=== PATIENT | female | born 1980 | race Caucasian/White ===

== ENCOUNTER 2020-12-21 11:41 | Outpatient (CLI) | payer MEDICAID, SELFPAY ==
--- NOTE | 2020-12-21 11:46 | XR_ITS ---
WS: [id number] RIBS LEFT TECHNIQUE: 3 views left ribs CLINICAL INFORMATION: RIB PAIN, LEFT SIDED COMPARISON: None. FINDINGS: Left lung is well aerated. Left ribs are normal in appearance. No visualized left rib fractures. No s ubcutaneous emphysema. XR/XR ribs LT 2V* [id number] IMPRESSION: No visualized left rib fractures.
== END 2020-12-21 11:42 | disposition home or self-care (01) ==
PROVIDERS: Visit Provider Pediatrics
DX: R07.81 Pleurodynia (principal)
CPT/HCPCS: 71100

== ENCOUNTER 2022-05-07 07:15 | Outpatient (CLI) | payer MEDICAID, SELFPAY ==
--- NOTE | 2022-05-07 08:30 | CT_ITS ---
WS: [id number] CT SINUSES TECHNIQUE: Noncontrast CT of the paranasal sinuses with coronal and sagittal reformatted images. CLINICAL INFORMATION: Chronic Sinusitis COMPARISON: None. DLP: 345.[address] scans at [facility] use at least one of these dose optimization techniques: automated e xposure control; mA and/or kV adjustment per patient size (includes targeted exams where dose is matc hed to clinical indication); or iterative reconstruction. FINDINGS: Mild LEFT to RIGHT nasal deviation measuring 3 to 4 mm. Retention cyst or polyp in the LEFT sphenoid sinus measuring 1.8 x 1.4 CM.. Paranasal sinuses are otherwise well aerated. Frontal sinuses, maxilla ry sinuses, and RIGHT sphenoid sinus locule are well aerated. Ethmoid air cells well aerated. Mastoid air cells well aerated. Normal posterior nasopharynx. Normal parapharyngeal fat. Ostiomeatal units are patent. Mild mucosal thickening in the RIGHT frontal ethmoidal recess. Trace mu cosal thickening ethmoid air cells. Normal pterygoid plates. CT/CT sinus wo con* [id number] IMPRESSION: 1. Mild LEFT to RIGHT nasal septal deviation measuring 3 to 4 mm. 2. Prominent retention cyst or polyp in the LEFT sphenoid sinus measuring 1.8 x 1.4 CM. 3. Paranasal sinuses otherwise well aerated with mild mucosal thickening in th e RIGHT frontoethmoidal recess and ethmoid air cells. 4. Mastoid air cells are well aerated. 5. Normal posterior nasopharynx.
== END 2022-05-07 07:16 | disposition home or self-care (01) ==
LOC: RAD 07:15
PROVIDERS: PCP Family Medicine; Visit Provider Otolaryngology
DX: J32.9 Chronic sinusitis, unspecified (principal); J34.2 Deviated nasal septum
CPT/HCPCS: 70486

== ENCOUNTER 2022-05-07 07:15 | Outpatient (CLI) | payer MEDICAID, SELFPAY ==
--- NOTE | 2022-05-07 07:22 | USCV_ITS ---
Marleni Shah Age: 41 Gender: F : 1980 Exam Date: 05/07/2022 07:25 Ordering Phys: Devendra Mandel M.D Technologist: CARROL Exam Location: [facility] [place] Indication: MURMUR BP: 150 / 70 HR: 80 Rhythm: Sinus Technical Quality: Adequate MEASUREMENTS (Male / Female) Normal Values 2D ECHO LVOT Diameter 2.0 cm LV Ejection Fraction MOD 2C 58.1 % LV Ejection Fraction 2C AL 62.6 % LA Diameter 2.8 cm LA Width 3.1 cm LA Height 3.5 cm RA Width 2.6 cm RA Height 3.2 cm Aorta at Sinotubular Diameter 2.2 cm IVC Diameter 1.8 cm M-MODE Aortic Annulus Diameter 2.6 cm LA Ao Ratio MM 1.1 MV E Point Septal Separation 0.9 cm DOPPLER AV Peak Velocity 129.0 cm/s LVOT Peak Velocity 91.0 cm/s AV Area Cont Eq vti 2.6 cm squared AV Area Cont Eq pk 2.2 cm squared MV Peak Velocity 110.0 cm/s MV Area PHT 4.1 cm squared Mitral E to A Ratio 0.9 MV E' Velocity 50.5 cm/s Mitral E to MV E' Ratio 6.7 Mitral E to LV E' Lateral Ratio 7.5 Mitral E to LV E' Septal Ratio 6.2 TR Peak Velocity 228.5 cm/s TR Peak Gradient 20.9 mmHg TR Mean Velocity 190.4 cm/s TR Mean Gradient 15.3 mmHg TR Velocity Time Integral 73.0 cm TV Peak E Velocity 68.0 cm/s Right Atrial Pressure 3.0 mmHg Pulmonary Artery Systolic Pressu 23.9 mmHg PV Peak Velocity 80.0 cm/s RV Acceleration Time 0.2 s RV Ejection Time 0.4 s RV AcT/ET 0.5 FINDINGS Left Ventricle Normal left ventricular size, systolic function and wall thickness, with no regional wall motion abnormalities. Left ventricular ejection fraction is estimated at 60 %. Grade I/IV diastolic dysfunction (abnormal relaxation filling pattern), normal to mildly elevated filling pressures. Right Ventricle The right ventricle is normal in size and function. Right Atrium The right atrium is normal in size. Left Atrium The left atrium is normal in size. Mitral Valve Mildly thickened mitral valve. No mitral valve stenosis. Mild mitral valve regurgitation. Aortic Valve Structurally normal aortic valve without significant sclerosis or stenosis. There is no aortic regurgitation. Tricuspid Valve Structurally normal tricuspid valve without significant stenosis and trace regurgitation. Pulmonary artery systolic pressure is normal. Pulmonic Valve Structurally normal pulmonic valve without significant stenosis. There is no pulmonic regurgitation. Pericardium Normal pericardium without effusion. Aorta Normal ascending aorta dimension. IVC The inferior vena cava appears normal. CONCLUSIONS 1-Normal left ventricular size, systolic function and wall thickness, with no regional wall motion abnormalities. Left ventricular ejection fraction is estimated at 60 %. Grade I/IV diastolic dysfunction (abnormal relaxation filling pattern), normal to mildly elevated filling pressures. 2-Mildly thickened mitral valve. No mitral valve stenosis. Mild mitral valve regurgitation. 3-There is no pericardial effusion. 4-Right atrial pressure is around 5 mm of mercury. Carter Renee MD (Electronically Signed) Final Date: 09 May 2022 16:51 S
== END 2022-05-07 07:16 | disposition home or self-care (01) ==
LOC: RAD 07:15
PROVIDERS: PCP Family Medicine; Visit Provider Internal Medicine
DX: R01.1 Cardiac murmur, unspecified (principal); I34.0 Nonrheumatic mitral (valve) insufficiency
CPT/HCPCS: 93306

== ENCOUNTER 2022-06-21 08:07 | Day surgery (SDC) | payer MEDICAID, SELFPAY ==
[2022-06-20 11:43] VITALS: BMI 21.1
[2022-06-21] VITALS (12 sets, daily range): BP systolic 152–178; BP diastolic 81–111; PULSE 69–100; RESP 16–18; TEMP 36.1–36.6; O2SAT 96–100
[2022-06-21] MEDS: sodium chloride 0.9% 1,000 ML 30 ML IV (08:55)
--- NOTE | 2022-06-21 09:20 | W.PM.OPSUD ---
Surgery/Procedure H&P Update DATE OF PROCEDURE: June 21, 2022 DATE H&P PERFORMED: 06/11/22 H&P UPDATE INFORMATION: I have reviewed H&P completed within last 30 days, I have examined patient prior to procedure and No changes to prior documentation CHANGES TO PREVIOUS DOCUMENTATION: No changes PREOP DIAGNOSIS: Chronic left sphenoid sinusitis PRIMARY INDICATION FOR PROCEDURE: Chronic left sphenoid sinusitis PLANNED PROCEDURE: Operation Date: 06/21/22 09:30 Proposed Procedures p [id number] - endoscopic sphenoidectomy J32.9(Not Applicable) - Vega Yo MD
[2022-06-21 09:28] LABS: OR HCG Qualitative Urine Negative (Negative)
[2022-06-21] MEDS: ceFAZolin 2,000 MG in sodium chloride 0.9% (plus) 50 ML 100 MG IV (09:35)
[2022-06-21] MEDS: oxymetazoline 0.05% Nasal Spray 15 mL 2 SPRAY NOSTRIL-B (09:50)
--- NOTE | 2022-06-21 09:50 | ANES.PREANE2 ---
Pre-Anesthetic Assessment Height/Weight: Height 1.68 m Weight 59.421 kg Temp Pulse Resp BP Pulse Ox O2 Del Method 97.8 F 97 18 152/93 96 Room Air 06/21/22 08:41 06/21/22 08:41 06/21/22 08:41 06/21/22 08:41 06/21/22 08:41 06/21/22 08:41 Preop Diagnosis: Chronic left sphenoid sinusitis Operation Date: 06/21/22 09:30 Proposed Procedures p 92441 - endoscopic sphenoidectomy J32.9(Not Applicable) - Vega Yo MD Familial anesthetic complications: none Was Beta [place] taken within 24 hours: N/A Was Clonidine taken within 24 hours: N/A Last intake: Intake Last Liquid Date 06/20/22 Last Liquid Time 22:30 Last Solid Date 06/20/22 Last Solid Time 22:30 Social Alcohol and Tobacco Exam alert, oriented x 3 and regular rate & rhythm Airway Submandibular: within normal limits Cervical ROM: within normal limits Mallampati: Class II Dentition: full Pulmonary Chronic Obstructive Pulmonary Disease CV/HEM Murmur ( MVP ) Palpitations Anesthetic Plan ASA status: 2 Anesthesia: General Medications/Allergies Home Medications Medication Instructions Recorded Confirmed Last Taken Type albuterol sulfate 90 mcg/actuation 2 inh inhalation 6XD PRN shortness 01/15/22 06/20/22 05/21/22 History aerosol inhaler (ProAir HFA) of breath or wheezing loratadine 10 mg tablet 10 mg PO DAILY 01/15/22 06/20/22 06/18/22 History montelukast 10 mg tablet 10 mg PO DAILY 01/15/22 06/20/22 06/20/22 History cetirizine 10 mg tablet (Zyrtec) 10 mg PO DAILY 12 months #90 tabs 05/16/22 06/20/22 06/20/22 Rx fluticasone propionate 50 2 spray intranasal DAILY 12 months 05/16/22 06/20/22 06/20/22 Rx mcg/actuation nasal #16 grams spray,suspension olopatadine 0.7 % eye drops 1 drp ophthalmic (eye) DAILY PRN 05/16/22 06/20/22 06/20/22 Rx (Pataday Once Daily Relief) itching 12 months #5 mL Allergies Allergy/AdvReac Type Severity Reaction Status Date / Time morphine Allergy Intermediate unknown Verified 06/20/22 11:40 Penicillins Allergy Intermediate unknown Verified 06/20/22 11:40 Current Medications Generic Name Dose Route Start Last Admin Trade Name Yesenia PRN Reason Stop Dose Admin Sodium Chloride 1,000 mls @ 30 mls/hr 06/21/22 08:15 06/21/22 08:55 Sodium Chloride 0.9% IV 06/22/22 08:14 30 mls/hr .Q24H RODRIGO Administration PFSH Anesthesia Medical History Alcohol use Chest pain Dizziness Fatigue Hx of type 2 diabetes mellitus Mitral valve prolapse Palpitations Seasonal allergies Smoker Surgical History Hx of section Hx of section x 4 Hx of heart surgery Family History Mother Diabetes Family/Other Diabetes Social History Smoking and tobacco status: former smoker Alcohol intake: current Alcohol intake frequency: 0-2 Drinks per Day Substance/Drug Use: never Data Anesthesia Cardiac Studies: Echocardiogram 05/07/22 Cardiac Event Monitor 04/02/22 Holter Monitor 01/22/22
[2022-06-21] MEDS: lidocaine-epi 2% 1.7mL Cartridge (OR Only) 6.8 ML XX (10:03)
[2022-06-21] MEDS: neomycin-poly-bacitracin oint 28 gm 1 APPLIC TOPICAL (10:14)
--- NOTE | 2022-06-21 10:16 | P.OP_ITS ---
Operative Report Date of procedure: June 21, 2022 Pre-op diagnosis: Preop Diagnosis Chronic left sphenoid sinusitis Post-op diagnosis: Same Post-op findings: Cystic mass left sphenoid sinus removed Procedure done: Endoscopic sinus surgery left sphenoidectomy Implants: 1 Telfa pack left nasal cavity Specimens removed/disposition: Contents left sphenoid sinus Pathology: Contents left sphenoid sinus Surgeon: Vega Yo MD Anesthesia: General and Local Estimated blood loss: 10 mL Complications: No complications encountered Findings: Patient with headaches and chronic left maxillary sinus with cystic mass. Brief History: 42-year-old female patient has had headaches and pressure sensation behind the eyes and found to have chronic left sphenoid sinusitis with cystic mass. Patient being brought to the operating room at this time to undergo excision with endoscopic approach and visualization to remove the contents of the left sphenoid sinus. The procedures risks and complications were explained in detail to the patient in the office setting. These risks included bleeding infection scarring swelling bruising recurrence need for additional treatment and potential risk of CSF leak meningitis brain abscess heart attack stroke or not surviving the surgery. With these things understood informed consent was granted and witnessed. Procedure: Description of procedure: The patient was placed on the operating table in the supine position. Adequate general endotracheal tube anesthesia was obtained. The patient's nose was packed with cottonoids soaked in 12-hour Afrin. Nasal hairs were trimmed with scissors. Packs were removed and the left side of the nose was infiltrated appropriately as was the greater [place] canal on the left side. A total of 6.8 mL of 2% Xylocaine with 1-100,000 epinephrine was utilized. The Afrin packs were reapplied to the nose and the patient was prepped and draped in usual fashion. A timeout was accomplished identifying the patient date of plan procedure allergies fire risk and medications given. With all in agreement the procedure continued. The Afrin packs were once again removed from the nose. The inferior turbinate on the left side was outfractured and the middle turbinate on the left side was outfractured for better visualization. The 0 degree endoscope was then used to visualize the face of the left sphenoid sinus following the posterior aspect of the inferior turbinate. The natural ostia region was identified and opened and enlarged to 1 cm x 5 mm. Contents of the sinus were removed with Shirley forceps. Appeared to be cystic lining. No sign of an active infection. The sinus was then evaluated with the scope again and no other masses or pathology was identified. The Afrin packs were reapplied to the nose on the left side. 1 was placed into the sphenoid sinus cavity. The packs were then removed several minutes later. Irrigation with sterile water was accomplished repeatedly. There was still a little bit of ooze and therefore packing was placed on the left side only. It was Telfa coated with Neosporin and placed to the posterior aspect. After that was accomplished no further bleeding was evident. The right nasal cavity was left patent. The mouth and oropharynx were suctioned clean. The drapes were removed. I tape was removed. Patient was returned to anesthesia for wake-up and extubation. Patient tolerated the procedure well had an estimated blood loss of 10 mL and arrived in recovery in stable condition.
--- NOTE | 2022-06-21 10:40 | PC.NURSE ---
Blood pressures elevated, spoke with BINDERY CHIEF and Dr Lennon and new orders received for IVP 5mg Lopressor and 10mg Labetalol. Will administer and continue to monitor.
[2022-06-21] MEDS: metoprolol tartrate 1 mg/1 mL SDV 5 mL 5 MG IVP (10:44)
[2022-06-21] MEDS: labetalol 5 mg/mL SDV 20mL 10 MG IVP (10:46)
--- NOTE | 2022-06-21 15:20 | ANE.PACU2 ---
Inpatient post-anesthesia follow up: Airway intact: Yes Vital signs: Temperature 97.6 F Pulse Rate 81 Respiratory Rate 18 Blood Pressure 168/86 Pulse Oximetry 98 Oxygen Delivery Me thod Room Air Oxygen Flow Rate 6 Fraction of Inspir ed Oxygen Hydration adequate: Yes Nausea and vomiting: No Pain level: 3 Mental status: Baseline
== END 2022-06-21 11:45 | disposition home or self-care (01) ==
PROVIDERS: Anesthesiology; Visit Provider Otolaryngology
PROC: (CPT 31288; principal; 2022-06-21 09:30)
DX: J01.31 Acute recurrent sphenoidal sinusitis (principal); J44.9 Chronic obstructive pulmonary disease, unspecified; R00.2 Palpitations; R01.1 Cardiac murmur, unspecified; F10.90 Alcohol use, unspecified, uncomplicated; Z87.891 Personal history of nicotine dependence
CPT/HCPCS: 31288; 81025; 84703; 88305; J0690; J1100; J1170; J2250; J2405; J2704; J2710; J3010; J3490; J7030

== ENCOUNTER 2024-02-25 09:26 | Outpatient (CLI) | payer MEDICAID, SELFPAY ==
--- NOTE | 2024-02-25 09:29 | USR_ITS ---
PROCEDURE INFORMATION: Exam: US Abdomen; Limited Exam date and time: 02/25/2024 9:39 AM Age: 43 years old Clinical indication: Abdominal pain; Generalized TECHNIQUE: Imaging protocol: Real time ultrasound of the abdomen with image documentation. Limited exam focused on the region of clinical interest. COMPARISON: No relevant prior studies available. FINDINGS: Liver: No significant liver pathology. Gallbladder: Gallbladder is contracted without evidence of calculus. Gallbladder wall appears mildly thickened to 4 mm although this is without definite pathologic significance given nondistention. Biliary ducts: No biliary dilatation. Pancreas: Visualized pancreas is unremarkable. Right kidney: Right kidney measures 11.7 cm in length. No calculus, solid mass, or obstruction. Renal echogenicity is within normal limits. Aorta: Visualized aorta is unremarkable. Inferior vena cava: Visualized IVC is unremarkable. US/US abdomen limited [id number] IMPRESSION: No acute pathology demonstrated.
== END 2024-02-25 09:27 | disposition home or self-care (01) ==
LOC: RAD 09:26
PROVIDERS: Visit Provider Family Medicine
DX: D13.4 Benign neoplasm of liver (principal); R10.11 Right upper quadrant pain
CPT/HCPCS: 76705

== ENCOUNTER 2024-10-14 10:01 | Outpatient (CLI) | payer MEDICAID, SELFPAY ==
[2024-10-14 10:31] LABS: Hematocrit 42.5 % (36-47); Hemoglobin 13.90 g/dL (11.27-16.99); Mean Corpuscular HGB Conc 32.7 g/dL (30-55); Mean Corpuscular Hemoglobin 29.0 pg (27-33); Mean Corpuscular Volume 88.7 fl (85-98); Nucleated Red Blood Cells % 0 %; Platelet Count 256 10^3/cmm (157-399); Red Blood Count 4.79 10^6/uL (3.85-5.65); White Blood Count 8.35 10^3/uL (3.29-11.43)
[2024-10-14 10:33] LABS: Glucose Urine UA 3+ (Normal); Nitrate Urine Negative (Negative); Specific Gravity, Urine 1.021 (1.005-1.030)
[2024-10-14 10:36] LABS: Add Urine Microscopic? YES
[2024-10-14 10:47] LABS: Estmated Average Glucose 246; Hemoglobin A1C 10.2 % (4.0-6.0)
[2024-10-14 11:01] LABS: Alanine Aminotransferase 39 U/L (0-33); Albumin Level 4.4 g/dL (3.5-5.2); Alkaline Phosphatase 93 U/L (35-105); Anion Gap 18.4 (5-19); Aspartate Amino Transferase 22 U/L (0-32); Blood Urea Nitrogen 11 mg/dL (6-20); Calcium 9.5 mg/dL (8.5-10.5); Carbon Dioxide 23 mmol/L (22-29); Chloride 98 mmol/L (98-107); Cholesterol 226 mg/dL (0-200); Globulin 3.1 g/dL (1.3-4.6); Glucose 331 mg/dL (65-115); HDL Cholesterol 52 mg/dL (60-100); Osmolality Calculated 292 mOsm/kg (285-295); Potassium 4.4 mmol/L (3.5-5.1); Sodium 135 mmol/L (136-145); Total Protein 7.5 g/dL (6.6-8.7); Triglycerides 208 mg/dL (0-150)
[2024-10-14 11:28] LABS: UA Slide Review UA Slide Review Perf
== END 2024-10-14 10:02 | disposition home or self-care (01) ==
PROVIDERS: PCP Family Medicine; Visit Provider Family Medicine
DX: E13.9 Other specified diabetes mellitus without complications (principal)
CPT/HCPCS: 36415; 80053; 80061; 81001; 83036; 85025; 87077; 87086; 87186

== ENCOUNTER → 2024-10-16 08:23 | Outpatient (BNVA) | payer MEDICAID, SELFPAY | PROVIDERS: PCP Family Medicine; Visit Provider Family Medicine | DX: R39.9 Unspecified symptoms and signs involving the genitourinary system (principal) | CPT/HCPCS: 81000 ==

== ENCOUNTER → 2024-11-13 11:41 | Outpatient (BNVA) | payer MEDICAID, SELFPAY | PROVIDERS: PCP Family Medicine; Visit Provider Family Medicine | DX: R39.9 Unspecified symptoms and signs involving the genitourinary system (principal) | CPT/HCPCS: 81000 ==

== ENCOUNTER 2024-12-16 14:28 | Outpatient (CLI) | payer MEDICAID, SELFPAY ==
--- NOTE | 2024-12-16 15:30 | CTR_ITS ---
PROCEDURE INFORMATION: Exam: CT Abdomen And Pelvis Without And With Contrast Exam date and time: 12/16/2024 3:42 PM Age: 44 years old Clinical indication: Abdominal pain; Left flank pain, kidney infections, increased blood sugar; Additional info: Chronic abdominal pain TECHNIQUE: Imaging protocol: Computed tomography of the abdomen and pelvis without and with contrast. Radiation optimization: All CT scans at this facility use at least one of these dose optimization techniques: automated exposure control; mA and/or kV adjustment per patient size (includes targeted exams where dose is matched to clinical indication); or iterative reconstruction. Contrast material: OMNI 350; Contrast volume: 100 ml; Contrast route: INTRAVENOUS (IV); COMPARISON: US abdomen limited [id number] 02/25/2024 9:39 AM RADIATION DOSE METRICS: Total DLP (mGy-cm): 681.54 FINDINGS: Liver: Normal. No mass. Gallbladder and biliary ducts: Normal. No calcified stones. No ductal dilation. Pancreas: Normal. No ductal dilation. Spleen: Normal. No splenomegaly. Adrenal glands: Normal. No mass. Kidneys and ureters: Mild bilateral hydroureter without evidence of obstructing calculus. Stomach and bowel: Mild fluid distension of multiple small bowel loops which can be seen in the setting of some enteritis. Mild colitis involving the sigmoid colon without significant additional findings. Appendix: No evidence of appendicitis. Intraperitoneal space: Unremarkable. No free air. No significant fluid collection. Vasculature: Unremarkable. No abdominal aortic aneurysm. Lymph nodes: Unremarkable. No enlarged lymph nodes. Urinary bladder: Unremarkable as visualized. Reproductive: Unremarkable as visualized. Bones/joints: Unremarkable. No acute fracture. Soft tissues: Unremarkable. CT/CT abdomen pelvis wo/w [id number] IMPRESSION: 1. Mild bilateral hydroureter without a definitive obstructing calculus or mass. This may be related to a phase of excretion. 2. Mild diffuse enterocolitis.
[2024-12-16] MEDS: iohexol 350 mg/mL 500 mL Btl (per mL) PO (15:36)
[2024-12-16] MEDS: iohexol 350 mg/mL 500 mL Btl (per mL) IV (15:46)
== END 2024-12-16 14:29 | disposition home or self-care (01) ==
PROVIDERS: PCP Family Medicine; Visit Provider Family Medicine
DX: R10.9 Unspecified abdominal pain (principal); G89.29 Other chronic pain; K57.90 Diverticulosis of intestine, part unspecified, without perforation or abscess without bleeding; N13.4 Hydroureter; K52.9 Noninfective gastroenteritis and colitis, unspecified; K31.89 Other diseases of stomach and duodenum; K52.89 Other specified noninfective gastroenteritis and colitis
CPT/HCPCS: 74178